=== PATIENT | male | born 1970 | race Caucasian/White ===

== ENCOUNTER → 2017-01-24 | Outpatient (CLI) | payer MEDICARE, BC ==
[~2017-01-24] MED LIST: ACTONEL35 MG PO; ALENDRONATE SOD70 MG PO; CIPRO250 MG PO; DELTASONE5 MG PO; FEOSOL325 MG PO; FLAGYL500 MG PO; IMODIUM2 MG PO; LEVAQUIN 250 M250 MG PO; NEORAL100 MG PO; OPIUM TINC10 MG/1 ML PO; OSCAL + D500 MG PO; SODIUM BICARBO650 MG PO; TYLENOL EXTRA500 MG PO; ZOFRAN4 M1 PO
[2017-01-24 07:30] LABS: HEMATOCRIT 42.8 % (37.0-53.0); HEMOGLOBIN 13.3 g/dL (12.0-17.0); MCH 24.1 pg (27.0-34.0); MCHC 31.1 gm/dL (32.0-36.5); MCV 77.7 fl (83.0-98.0); MPV 8.9 fl (9.4-12.4); RBC 5.51 M/uL (4.00-6.00); RDW-CV 16.4 % (11.9-14.6); WBC 9.2 K/uL (4.0-11.0)
[2017-01-24 08:01] LABS: ALBUMIN 2.9 gm/dL (3.5-5.0); ALK PHOS 116 IU/L (33-138); ANION GAP 14.3 (10.0-19.0); AST 17 IU/L (10-40); CALCIUM 8.3 mg/dL (8.5-10.5); CHLORIDE 109 mMol/L (96-110); CO2 23 mMol/L (22-32); CREATININE 1.1 mg/dL (0.6-1.3); ESTIMATED GFR (MDRD EQUATION) > 60; POTASSIUM 4.3 mMol/L (3.7-5.1); SODIUM 142 mMol/L (135-145); TOTAL BILIRUBIN 0.9 mg/dL (0.0-1.5); TOTAL PROTEIN 7.5 g/dL (6.0-8.4)
[2017-01-24 08:07] LABS: ALT 21 IU/L (12-78); BLOOD UREA NITROGEN 11 mg/dL (6-24)
== END | disposition disaster alternative care site (69) ==
LOC: GLAB 07:05
PROVIDERS: Internal Medicine Gastroenterology
DX: Z48.23 Encounter for aftercare following liver transplant (principal); Z94.4 Liver transplant status; Z79.899 Other long term (current) drug therapy

== ENCOUNTER → 2017-04-12 | Outpatient (CLI) | payer MEDICARE, BC ==
[2017-04-12 07:28] LABS: HEMATOCRIT 40.5 % (37.0-53.0); HEMOGLOBIN 12.8 g/dL (12.0-17.0); MCH 26.1 pg (27.0-34.0); MCHC 31.6 gm/dL (32.0-36.5); MPV 9.5 fl (9.4-12.4); RBC 4.91 M/uL (4.00-6.00); RDW-CV 17.2 % (11.9-14.6); WBC 6.6 K/uL (4.0-11.0)
[2017-04-12 07:29] LABS: MCV 82.5 fl (83.0-98.0)
[2017-04-12 07:31] LABS: ALBUMIN 2.8 gm/dL (3.5-5.0); ALK PHOS 67 IU/L (33-138); ALT 15 IU/L (12-78); ANION GAP 11.4 (10.0-19.0); AST 15 IU/L (10-40); BLOOD UREA NITROGEN 15 mg/dL (6-24); CALCIUM 7.9 mg/dL (8.5-10.5); CHLORIDE 111 mMol/L (96-110); CO2 25 mMol/L (22-32); CREATININE 1.1 mg/dL (0.6-1.3); ESTIMATED GFR (MDRD EQUATION) > 60; POTASSIUM 4.4 mMol/L (3.7-5.1); SODIUM 143 mMol/L (135-145); TOTAL BILIRUBIN 0.9 mg/dL (0.0-1.5); TOTAL PROTEIN 6.8 g/dL (6.0-8.4)
== END | disposition disaster alternative care site (69) ==
LOC: GLAB 07:00
PROVIDERS: Internal Medicine Gastroenterology
DX: Z48.23 Encounter for aftercare following liver transplant (principal); Z94.4 Liver transplant status; Z79.899 Other long term (current) drug therapy

== ENCOUNTER 2017-06-09 15:00 | Inpatient (IN) | payer MEDICARE, BC ==
[~2017-06-09] VITALS: Ht 170.2 cm; Wt 87.2 kg
--- NOTE | ~2017-06-09 | CON ---
PATIENT'S NAME: EMILIANA BREWER [facility] AGE: 47 Y [address] ROOM: [address] [place], [place] [address] LOCATION: GPCU ADMIT DATE: 06/09/2017 Consultation DISCHARGE DATE: FAMILY PHYSICIAN: CONSTANZA CARLSON MD ATTENDING PHYSICIAN: Mike Grissom DATE OF CONSULTATION: 06/09/2017 REFERRING PHYSICIAN: MITZY CHEATHAM REFERRING PHYSICIAN: Mike Grissom MD. REASON FOR CONSULTATION: HAKAN on CKD stage 3. HISTORY OF PRESENT ILLNESS: A 47-year-old male with history of ulcerative colitis, status post colectomy, ileoanal pull through in the past, liver transplant, currently on prednisone and cyclosporine admitted with significant diarrhea and poor oral intake associated with HAKAN and hypotension. Creatinine which is at baseline of 1.1 to 1.4 was 6.3 with very low urine output. Nephrology consultation has been called for above-mentioned reason. The patient states that he is feeling dizzy from this a.m., blood pressure was 80-90 in the systolic, came to see Dr. Carlson in the clinic and got a liter of normal saline bolus over there and subsequently was admitted in the hospital. Blood pressure is still pretty marginal, urine output was also very low and does not have a Chua at this point. Denied any chest pain or shortness of breath. The patient says that his mucous membrane is pretty dry and did mention about significant thirst. He admitted that he was not drinking well enough and was working outside in the hot summer. He is currently on cyclosporine as well for his liver transplant as mentioned above. Regarding the diarrhea, he has significant pain in the abdomen and cramping associated with multiple loose stools over the last 24-48 hours and he was lightheaded while standing. Denied any urinary symptoms other than decrease in the urinary volume. Denied any dysuria, urgency, or frequency. No nausea or vomiting. PAST MEDICAL HISTORY: Ulcerative colitis, status post liver transplant, low cognitive state. PAST SURGICAL HISTORY: Status post colectomy with ileoanal pull-through, status post liver transplant. SOCIAL HISTORY: Denied any smoking or illicit drug use. No alcohol abuse. Does have a full- time job and appears to involve in most of his decision making. FAMILY HISTORY: Reviewed and noncontributory about any kidney disease or dialysis. ALLERGIES: NO KNOWN DRUG ALLERGIES. CURRENT HOME MEDICATIONS: As per the chart.PATIENT'S NAME: EMILIANA BREWER [facility] AGE: 47 Y [address] ROOM: [id number] [place], [place] [address] LOCATION: GPCU ADMIT DATE: 06/09/2017 Consultation DISCHARGE DATE: FAMILY PHYSICIAN: CONSTANZA CARLSON MD ATTENDING PHYSICIAN: Mike Grissom REVIEW OF SYSTEMS: GENERAL: No fever. No chills or rigor. HEENT: No sore throat. No sinus congestion. CVS: No chest pain. No exertional shortness of breath. No leg swelling. RESPIRATORY: No shortness of breath. No cough. No wheezing. GENITOURINARY: Decrease in the urine output as mentioned in the HPI. No dysuria, urgency, or hesitancy. No hematuria. GASTROINTESTINAL: Complained of abdominal pain and diarrhea. No nausea or vomiting. NEUROLOGIC: No weakness. No seizures. SKIN: No rash. No itching. ALLERGIES: No seasonal allergy. No hayfever. ENDOCRINE: No heat intolerance. No cold intolerance. PSYCHIATRIC: No sadness. No crying spells. No history of panic attack. PHYSICAL EXAMINATION: VITAL SIGNS: Blood pressure 80s/40s, pulse 100, respiratory rate 18, afebrile, saturating 92-95% on room air. GENERAL: Not in apparent distress. HEAD: Dry mucous membranes. NECK: Flat JVP. CVS: S1 and S2 normal, regular rate and rhythm. No murmur, rub, gallop. CHEST: Bilateral air entry equal. No wheeze or rales. ABDOMEN: Soft, nontender, nondistended. Bowel sounds present. EXTREMITIES: No cyanosis, clubbing, jaundice. No dependent edema. MUSCULOSKELETAL: No limitation of range of motion. SKIN: No pallor, cyanosis, icterus. LEASING ASSISTANT: Alert and oriented x3. No gross findings. LABORATORY EVALUATION: Lactate 1.1. CBC: WBC 11.6, hemoglobin 12.5, platelet 264. Chemistry: Serum sodium 129, potassium 4.2, chloride 95, bicarbonate 22, BUN 63, creatinine 5.5, glucose 102, calcium 8.5, albumin 2.7, phosphorus 4.2, anion gap 16.2. UA pending. Urine lytes pending. ASSESSMENT AND PLAN: 1. Acute kidney injury on chronic kidney disease 3. Baseline creatinine of 1.1 to 1.4, now 6.3, decreased to 5.5 after 1 L of fluid hydration, possibly prerenal versus acute tubular necrosis. 2. Hypovolemic hyponatremia with serum sodium of 128, baseline is within normal range. 3. Status post liver transplant. On prednisone 5 and cyclosporine 100 b.i.d. 4. Diarrhea. Appears to be chronic but with recent worsening. The patient has been started on Flagyl.PATIENT'S NAME: EMILIANA BREWER [facility] AGE: 47 Y [address] ROOM: [place] [address] LOCATION: GPCU ADMIT DATE: 06/09/2017 Consultation DISCHARGE DATE: FAMILY PHYSICIAN: CONSTANZA CARLSON MD ATTENDING PHYSICIAN: Mike Grissom PLAN: Oliguric acute kidney injury, possibly secondary to fluid depletion with prerenal versus hypovolemic/hemodynamic ATN. We will start aggressive IV hydration with 2 L of normal saline bolus and then 150 mL/h. We will place and maintain a Chua and with strict intake and output monitoring and daily standing weight. We will do CBC and renal panel now and daily a.m. Avoid any nephrotoxins including NSAIDs and contrast media. Avoid hemodynamic instability and maintain MAP more than 65. We will also do a cyclosporine level today especially in context of dehydration and volume depletion and hold cyclosporine from now. Regarding hypovolemic hyponatremia, we will continue IV hydration as mentioned above and we will closely monitor the serum sodium. Please check urine sodium and potassium urine osmolality along with serum osmolality. Regarding orthotopic liver transplant and post liver transplant immunosuppression. We will hold cyclosporine in context of HAKAN. Continue prednisone for now. We may restart cyclosporine once renal function and volume status is better and once hemodynamic parameters are restored. Regarding diarrhea. The patient is started on antibiotic with Cipro and Flagyl by his primary team and will continue for that. Please order stool workup and we will defer further management as per the primary team. Thank you for allowing me to participate in this patient's care. We will closely monitor the patient's progress along with you. ABHISEKH GABBI CHEATHAM MD /modl /[id number] d: 06/10/17 1522 t: 06/25/1721, CONSULTATION REPORT
--- NOTE | ~2017-06-09 | DS ---
PATIENT'S NAME: EMILIANA BREWER [facility] AGE: 47 Y [address] ROOM: [address] [place], [place] [address] LOCATION: GPCU ADMIT DATE: 06/09/2017 Discharge Summary DISCHARGE DATE: 06/12/2017 FAMILY PHYSICIAN: Zo Alva MD ATTENDING PHYSICIAN: Mike Grissom REASON FOR ADMISSION: Acute renal failure as primary diagnosis secondary to acute diarrheal illness with hypovolemia. SECONDARY DIAGNOSES: 1. Chronic kidney disease, stage 3. 2. Hypokalemia. 3. Non-anion gap metabolic acidosis. 4. Ulcerative colitis, status post colectomy remotely. 5. History of orthotopic liver transplant. 6. Recent history of pouchitis. 7. Developmental delay. 8. Iron deficiency anemia. 9. [id number] protein-calorie malnutrition. CONSULTATIONS: Dr. Parrish with Nephrology. PRESENTING COMPLAINTS: This is a 47-year-old male with a history noted above, who was noted to have worsening renal function upon presentation to the clinic for dehydration and diarrhea. HOSPITAL COURSE: Creatinine was noted on outside lab work to be elevated to 6.6. His usual baseline 1.3 to 1.4. The patient does have history of similar presentations with dehydration, likely secondary to his history of colectomy for ulcerative colitis and poor ability to reabsorb. The patient is a poor historian, and notes that he had actually been feeling well prior to arrival, unable to gain further insight into recent situation, although he does deny fever, chills, sweats, cough, urinary symptoms, chest pain, shortness of breath, abdominal pain, or any other concerns. He is unable to quantify the number of stools that he had been having over recent days, but this was noted to be 6 to 8 stools daily as stated by staff early in admission. Workup was negative for positive infectious agent including negative C.diff and stool cultures. Renal function did improve with IV fluid hydration with saline. Renal ultrasound was negative for obstructive pathology. Cyclosporine was held first 2 days of admission due to known vasoconstrictive properties. This was resumed without incident the day prior to discharge. On date of discharge, creatinine had improved to 1.3. The only other complicating factor during his stay was mild non-anion gap metabolic acidosis noted and felt to be related to dilution with volume resuscitation. The patient did receive 3 amps of sodium bicarb on day prior to discharge per Nephrology and bicarb on BMP PATIENT'S NAME: EMILIANA BREWER [facility] AGE: 47 Y [address] ROOM: [id number] [place], [place] [address] LOCATION: GPCU ADMIT DATE: 06/09/2017 Discharge Summary DISCHARGE DATE: 06/12/2017 FAMILY PHYSICIAN: Zo Alva MD ATTENDING PHYSICIAN: Mike Grissom improved from 20 to 31. Hepatic function panel drawn during stay in the setting of held cyclosporine was unremarkable. The patient will be discharged home where he lives with his parents. PHYSICAL EXAMINATION: VITAL SIGNS: On date of discharge, temp 98.0, pulse 68, respiratory rate 18, blood pressure 105/60, and saturating 92% on room air GENERAL: In no acute distress, lying comfortably in bed, mild developmental delay and slow to respond to questions noted. CARDIOVASCULAR: Regular rate and rhythm. No murmurs, rubs, or gallops appreciated. 2+ pulses bilateral upper and lower extremities. LUNGS: Clear to auscultation bilaterally. Normal effort on room air. ABDOMEN: Soft, nontender, nondistended. Bowel sounds normoactive. EXTREMITIES: Without edema. DISCHARGE MEDICATIONS: Per MAR: 1. Cyclosporine held briefly during stay but resumed on discharge. 2. No other pertinent changes made during stay. DISCHARGE INSTRUCTIONS: Encouraged adequate fluid intake in the setting of possible infectious, though likely malabsorptive diarrhea given history of colectomy. FOLLOWUP: The patient to be seen with PCP within the next week with renal function panel at that time at Dr. Alva's office. TIME: I spent 25 minutes on date of discharge including visit with the patient and discharge coordination. MD KENNEDY LANE/jean-paul /[id number] d: 06/13/17 0413 t: 06/13/17 0824, DISCHARGE SUMMARY
--- NOTE | ~2017-06-09 | HP ---
PATIENT'S NAME: EMILIANA BREWER [facility] AGE: 47 Y [address] ROOM: [place] [address] LOCATION: GPCU ADMIT DATE: 06/09/2017 History & Physical DISCHARGE DATE: FAMILY PHYSICIAN: CONSTANZA CARLSON MD ATTENDING PHYSICIAN: Mike Grissom DATE OF SERVICE: CHIEF COMPLAINT: Acute kidney injury in the setting of chronic kidney disease. HISTORY OF PRESENTING ILLNESS: This 47-year-old white male with history of ulcerative colitis status post colectomy with pouch construction and subsequent liver transplant, was transferred to [facility] from the clinic with worsening kidney injury. He has a frequent history of exacerbations of dehydration. He does intermittently present to the clinic requiring some IV fluids. Today, he presented and his creatinine was significantly elevated above his baseline at 6.6. He usually runs 1.3-1.4. Although he did receive some IV fluids in the clinic today. It was felt that his condition would require hospitalization for extended IV fluid hydration and definitive evaluation and management. The patient is a poor historian. He reflects that he is actually been feeling "well." He did eat chicken nuggets earlier today but admits that he has not been drinking well. He denies headaches. Denies dizziness. Denies fever, chills, or sweats. He has not had any significant chest pain or shortness of breath. He denies vilma abdominal pain. He does not believe that he stooled today and cannot remember the last time that he did. He has been voiding in small amounts and voided a little bit after his arrival to the floor here. He has been consistent with his home medication regimen. His mother acts as a caregiver apparently. PAST MEDICAL HISTORY: ALLERGIES: NO KNOWN DRUG ALLERGIES. ILLNESSES: 1. Ulcerative colitis status post colectomy with ileoanal pouch construction. 2. Liver transplant, on immunosuppressant therapy with cyclosporine. 3. Developmental delay. PATIENT'S NAME: EMILIANA BREWER [facility] AGE: 47 Y [address] ROOM: [place] [address] LOCATION: GPCU ADMIT DATE: 06/09/2017 History & Physical DISCHARGE DATE: FAMILY PHYSICIAN: CONSTANZA CARLSON MD ATTENDING PHYSICIAN: Mike Grissom 4. History of recurrent pouchitis. CURRENT MEDICATIONS: 1. Acetaminophen 500 mg p.o. q.4 hours p.r.n. headache. 2. Fosamax 70 mg p.o. q.week. 3. Calcium with vitamin D 500 mg p.o. b.i.d. 4. Cipro 250 mg p.o. daily. 5. Cyclosporine 100 mg p.o. b.i.d. 6. Iron 325 mg p.o. t.i.d. 7. Imodium 2 mg p.o. q.i.d. 8. Prednisone 5 mg p.o. daily. FAMILY HISTORY: Negative for heart disease or stroke. SOCIAL HISTORY: He lives here in [place]. 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 There is no significant history of tobacco use or alcohol use. His mother, Desiree, provides social support. REVIEW OF SYSTEMS: As per HPI. All other organ systems reviewed and are negative. OBJECTIVE: VITAL SIGNS: Temperature. 98.1, pulse 79, respirations 15, blood pressure 96/55. Weight is 77.1 kg. GENERAL: He is anxious, cooperative, lying in the bed, in no acute distress. He answers questions appropriately but demonstrates limited comprehension. SKIN: Supple, pink, warm, and dry. There are no obvious rashes. HEENT: Otherwise normocephalic. Sclerae nonicteric. Pupils equal, round, and reactive to light and accommodation. Extraocular movements appear intact. Nasal turbinates normal in appearance. Oropharynx clear. Mucous membranes are pink and moist. Dentition is in poor repair. NECK: Supple. Plethoric. No masses or adenopathy. No thyromegaly. No JVD. CHEST: Wall is symmetrical. HEART: Regular without murmurs. LUNGS: Clear bilaterally. No wheezes or crackles are heard. ABDOMEN: Soft and protuberant. Nontender. Bowel sounds present. No masses. No obvious hepatosplenomegaly. and RECTAL: Not performed. EXTREMITIES: Display no significant clubbing, cyanosis, or edema. NEUROLOGIC: Mentation is slowed. There are no focal deficits. LABORATORY AND X-RAY DATA: CBC showed white blood cell count elevated at 14.6, hemoglobin is 13.5, PATIENT'S NAME: EMILIANA BREWER [facility] AGE: 47 Y [address] ROOM: [id number] [place], [place] [address] [facility] AD[facility] DATE: 06/09/2017 History & Physical DISCHARGE DATE: FAMILY PHYSICIAN: CONSTANZA CARLSON MD ATTENDING PHYSICIAN: Mike Grissom hematocrit 39.6, platelets 283. Chemistries reveal a BUN and creatinine of 63 and 6.06. Sodium and potassium 128 and 4.7, chloride and CO2 of 93 and 25.4 respectively. Albumin is slightly low at 3.0. Magnesium level is 1.8. A lactate in the clinic was normal at 1.2. ASSESSMENT AND PLAN: 1. Acute kidney injury. We will admit to inpatient care. We will initiate continued IV fluid hydration therapy with normal saline and monitor for response. We will get renal ultrasound and follow up on that when the results are known. We will hold the cyclosporine as suggested by Dr. Carlson due to its vasoconstrictive properties. We will also request consultation by Nephrology, Dr. Vasquez and await his evaluation recommendations. 2. Pouchitis. He has been on low-dose ciprofloxacin therapy. We will review the literature for alternative strategies. Consider a probiotic. We will repeat lactate to assess for the possibility of developing sepsis. 3. Ulcerative colitis. Historically controlled and stable on steroid therapy with prednisone. Plan to continue with prednisone and monitor. 4. Status post liver transplant. Historically stable, on cyclosporine. We will hold the cyclosporine as above at least temporarily and monitor. 5. Moderate protein-calorie malnutrition. Encourage balanced dietary intake. 6. Hyponatremia, mild. We will initiate IV normal saline as above. He appears to be intravascularly volume deplete. 7. Developmental delay. We will encourage ongoing education and support to the patient and his mother to develop a safe discharge plan. 8. Deep venous thrombosis prophylaxis. We will follow the VTE protocol. MD COLETTE SALAS/emperatrizl /[id number] D: [id number] T: [id number] HISTORY & PHYSICAL
--- NOTE | 2017-06-09 16:15 | NUR ---
Pt is 47 y/o male admit for acute on chronic kidney disease for hospitalist. Pt alert and oriented x3. Resides at home with his parents. No allergies. Yellow bracelet on. Hx cirrhosis,liver transplant,learning disability, ulcerative colitis-had colostomy and take down,low urine output today. PT states he didn't feel well while at work and was slightly nauseated.
[2017-06-09 16:32] LABS: BLOOD URINE 10 /UL (NEGATIVE); GLUCOSE URINE NEGATIVE (NEGATIVE); KETONE URINE 5 mg/dL (NEGATIVE); LEUKOCYTES URINE 25 /UL (NEGATIVE); NITRITE URINE NEGATIVE (NEGATIVE); PROTEIN URINE 30 mg/dL (NEGATIVE); TURBIDITY URINE CLEAR (CLEAR); UROBILINOGEN URINE 1 mg/dL (NORMAL)
[2017-06-09 16:35] LABS: COLOR URINE AMBER (YELLOW)
[2017-06-09 17:16] LABS: AMORPHOUS URINE 3+ (NEGATIVE); BACTERIA URINE RARE (NEGATIVE); HYALINE CAST URINE 50-100 #/LPF (NEGATIVE); RBC URINE 0-2 #/HPF (NEGATIVE)
[2017-06-09 18:01] LABS: BASOPHIL % 0.3 %; EOSINOPHIL % 0.3 %; HEMATOCRIT 36.4 % (37.0-53.0); HEMOGLOBIN 12.5 g/dL (12.0-17.0); IMMATURE GRANULOCYTE # 0.1 K/uL (0.0-0.3); IMMATURE GRANULOCYTE % 0.4 %; LYMPHOCYTE # 1.7 K/uL (0.8-4.0); LYMPHOCYTE % 14.2 %; MCH 27.1 pg (27.0-34.0); MCHC 34.3 gm/dL (32.0-36.5); MONOCYTE # 0.7 K/uL (0.0-1.0); MONOCYTE % 6.2 %; NEUTROPHIL # (ANC) 9.2 K/uL (1.4-9.0); NEUTROPHIL % 78.6 %; NRBC % 0 /100WBC (0-0.00); PLATELET COUNT 264 K/uL (150-450); RBC 4.61 M/uL (4.00-6.00); RDW-CV 13.8 % (11.9-14.6); WBC 11.6 K/uL (4.0-11.0)
[2017-06-09 18:09] LABS: ALBUMIN 2.7 gm/dL (3.5-5.0); ANION GAP 16.2 (10.0-19.0); CALCIUM 8.5 mg/dL (8.5-10.5); PHOSPHORUS 4.2 mg/dL (2.5-4.9); POTASSIUM 4.2 mMol/L (3.7-5.1)
[2017-06-09 18:11] LABS: CREATININE 5.5 mg/dL (0.6-1.3)
--- NOTE | 2017-06-09 18:47 | NUR ---
Significant Event:Patient admitted for weakness and diarrhea x 3 days. Mother brought to clinic today to be seen and BPs were 80/50s. IV fluid bolus given and transferred here. History of liver transplant and currently on immunosuppression. BPs 90/60s on arrival. 2L fluid bolus started. Dr. Parrish consulted for HAKAN. Denies dizziness at this time. BC done to rule out sepsis. Follow up: continue plan of care.
[2017-06-10 03:25] LABS: BASOPHIL % 0.3 %; EOSINOPHIL # 0.1 K/uL (0.0-0.5); EOSINOPHIL % 0.9 %; HEMATOCRIT 33.1 % (37.0-53.0); HEMOGLOBIN 11.2 g/dL (12.0-17.0); IMMATURE GRANULOCYTE # 0.1 K/uL (0.0-0.3); IMMATURE GRANULOCYTE % 0.5 %; LYMPHOCYTE # 1.9 K/uL (0.8-4.0); LYMPHOCYTE % 19.8 %; MCH 27.3 pg (27.0-34.0); MCHC 33.8 gm/dL (32.0-36.5); MCV 80.5 fl (83.0-98.0); MONOCYTE % 9.8 %; MPV 9.1 fl (9.4-12.4); NEUTROPHIL # (ANC) 6.6 K/uL (1.4-9.0); NEUTROPHIL % 68.7 %; NRBC % 0 /100WBC (0-0.00); PLATELET COUNT 230 K/uL (150-450); RBC 4.11 M/uL (4.00-6.00); RDW-CV 13.8 % (11.9-14.6); WBC 9.7 K/uL (4.0-11.0)
[2017-06-10 03:39] LABS: ALBUMIN 2.4 gm/dL (3.5-5.0); ANION GAP 12.9 (10.0-19.0); CALCIUM 7.8 mg/dL (8.5-10.5); CREATININE 3.4 mg/dL (0.6-1.3); MAGNESIUM 1.9 mg/dL (1.8-2.6); PHOSPHORUS 3.2 mg/dL (2.5-4.9); POTASSIUM 3.9 mMol/L (3.7-5.1)
--- NOTE | 2017-06-10 05:08 | NUR ---
Patient is A/O. Lung sounds are clear on RA. Bowel sounds are present. 4 small loose stools of diarrhea. Chua catheter with 500 output. SBA. IV in left anterior wrist with 150 NS running. c/o low back pain treated with 650mg Tylenol at 0330. VSS. Regular diet.
[2017-06-10 12:37] LABS: BILIRUBIN URINE NEGATIVE (NEGATIVE); BLOOD URINE 25 /UL (NEGATIVE); COLOR URINE YELLOW (YELLOW); GLUCOSE URINE NEGATIVE (NEGATIVE); KETONE URINE NEGATIVE (NEGATIVE); LEUKOCYTES URINE 100 /UL (NEGATIVE); NITRITE URINE NEGATIVE (NEGATIVE); PH URINE 6.5 (4.0-8.0); PROTEIN URINE 15 mg/dL (NEGATIVE); TURBIDITY URINE CLEAR (CLEAR); UROBILINOGEN URINE NORMAL (NORMAL)
[2017-06-10 12:47] LABS: BACTERIA URINE RARE (NEGATIVE); EPITHELIAL URINE RARE #/HPF (NEGATIVE); RBC URINE 0-2 #/HPF (NEGATIVE); WBC URINE 0-2 #/HPF (NEGATIVE)
--- NOTE | 2017-06-10 13:36 | NUR ---
Met with patient at bedside today. Introduced myself, SW media intern Rosa, and explained our role with the CM department. Patient lives at home with his parents. He is developmentally delayed and unable to live on his own. He has a job at [employer]. His plan is to return home to his parents and return to work once he is medically cleared. No anticipated discharge needs for him. Will continue to follow and offer supports.
--- NOTE | 2017-06-10 18:11 | NUR ---
Significant Event: ALERT & ORIENTED, DEVELOPMENTAL DELAY. SBP 90-100, HR 50-60'S, AFEBRILE, ROOM AIR. SBA. 10 LOOSE SEEDY STOOLS, SPECIMEN TO LAB. ST 1250 OUT. GAVE 2L BOLUS, NS AT 250 ML/HR NOW. Follow up: DC TO HOME TOMORROW/TUESDAY IF CREATININE IMPROVES
[2017-06-11 03:42] LABS: BASOPHIL % 0.6 %; EOSINOPHIL # 0.1 K/uL (0.0-0.5); EOSINOPHIL % 2.5 %; HEMATOCRIT 31.5 % (37.0-53.0); HEMOGLOBIN 10.4 g/dL (12.0-17.0); IMMATURE GRANULOCYTE % 0.8 %; LYMPHOCYTE # 1.1 K/uL (0.8-4.0); LYMPHOCYTE % 20.7 %; MCH 27.2 pg (27.0-34.0); MCV 82.5 fl (83.0-98.0); MONOCYTE # 0.5 K/uL (0.0-1.0); MONOCYTE % 10.3 %; NEUTROPHIL # (ANC) 3.4 K/uL (1.4-9.0); NEUTROPHIL % 65.1 %; NRBC % 0 /100WBC (0-0.00); PLATELET COUNT 211 K/uL (150-450); RBC 3.82 M/uL (4.00-6.00); RDW-CV 14.3 % (11.9-14.6); WBC 5.2 K/uL (4.0-11.0)
[2017-06-11 03:55] LABS: CALCIUM 7.6 mg/dL (8.5-10.5); PHOSPHORUS 2.1 mg/dL (2.5-4.9); POTASSIUM 3.8 mMol/L (3.7-5.1)
[2017-06-11 03:56] LABS: ANION GAP 11.8 (10.0-19.0); CREATININE 1.3 mg/dL (0.6-1.3)
[2017-06-11 04:05] LABS: TOTAL PROTEIN 5.5 g/dL (6.0-8.4)
[2017-06-11 04:07] LABS: TOTAL BILIRUBIN 0.5 mg/dL (0.0-1.5)
--- NOTE | 2017-06-11 05:06 | NUR ---
Significant Event: Patient alert and oriented x3. SBP 120s-140s. HR 90s-100s. Temp. 98.9-99.0. On RA. Percocet x1 given for pain to boil on left neck. Dressing changed x1 per patient request. Surrounding skin on left neck hard, red. Up in room with stand-by assist. HS accucheck 343. Insulin given per sliding scale. 1600ml uop. Bilateral arm PIVs saline locked. Patient calm and cooperative with all cares. Follow up: Will continue to monitor per plan of care.
--- NOTE | 2017-06-11 05:18 | NUR ---
Significant Event: Patient alert and oriented x3. Developmentally delayed. SBP 90s-110s. All other vital signs stable. On RA. Up with stand-by assist in room. Bowel movement x7 this shift. Order for C-Diff sample. Results pending. Chua catheter patent with 1000ml uop. Left wrist PIV with NS running at 250ml/hr. Complained of back pain on and off throughout shift. Repositioning and walking brought relief to patient. Aloe Buhl applied to hemmorrhoids/ bottom frequently. Patient calm and cooperative with all cares. Follow up: Will continue to monitor per plan of care.
--- NOTE | 2017-06-11 16:18 | NUR ---
Significant Event: A/O X 3. SPEECH IS HARD TO UNDERSTAND AT TIMES, PT. MUMBLES WHICH IS NORMAL FOR HIM. IV SODIUM BICARB TODAY. GFR 65 CRET 1.3. HAS HAD 3 SMALL LOOSE STOOLS. AFEBRILE. HR 50-93 TODAY. O2 SATS 96% ON ROOM AIR. NO RESP. DISTRESS. ST WITH GOOD URINE OUTPUT. PT. HAS MASSIVE HEMMORHOIDS, WITH SOME BLEEDING AT TIMES. PT. VOICED HIS PCP IS AWARE. SBP 88-98 TODAY. Follow up: PREPARE DISM. PAPERS FOR POSSIBLE DISM. TOMORROW.
[2017-06-12 03:07] LABS: BASOPHIL % 0.7 %; EOSINOPHIL # 0.3 K/uL (0.0-0.5); EOSINOPHIL % 5.2 %; HEMATOCRIT 29.6 % (37.0-53.0); IMMATURE GRANULOCYTE % 0.5 %; LYMPHOCYTE % 34.7 %; MCH 27.5 pg (27.0-34.0); MCHC 33.8 gm/dL (32.0-36.5); MCV 81.5 fl (83.0-98.0); MONOCYTE # 0.7 K/uL (0.0-1.0); MONOCYTE % 11.4 %; NEUTROPHIL # (ANC) 2.8 K/uL (1.4-9.0); NEUTROPHIL % 47.5 %; NRBC % 0 /100WBC (0-0.00); PLATELET COUNT 208 K/uL (150-450); RBC 3.63 M/uL (4.00-6.00); WBC 5.8 K/uL (4.0-11.0)
[2017-06-12 03:20] LABS: ANION GAP 8.3 (10.0-19.0); CREATININE 1.3 mg/dL (0.6-1.3); POTASSIUM 3.3 mMol/L (3.7-5.1)
[2017-06-12 03:22] LABS: ALBUMIN 1.9 gm/dL (3.5-5.0); CALCIUM 7.3 mg/dL (8.5-10.5); PHOSPHORUS 1.9 mg/dL (2.5-4.9)
--- NOTE | 2017-06-12 04:59 | NUR ---
Significant Event: Pt A&Ox4. VS stable, remains on RA. Has been hypotensive throughout the night. Has had multiple stools throughout the night, gave 1 dose of imodium with somewhat relief. Pulled do around 0030. Has had 1 Lg void since pulling. Potassium this AM was 3.3. No c/o pain. Have been using perifoam and aloe vesta to bottom. Follow up: Treat potassium? To d/c today home.
--- NOTE | 2017-06-12 15:03 | NUR ---
DISM. NOTE: 1450: REVIEW OF HOME MEDS, NO NEW MEDS. DIET/ ACTIVITY INSTRUCTED ON FLUID INTAKE. FOLLOW UP APPT. MOTHER AND PATIENT VOICED UNDERSTANDING.
== END 2017-06-12 15:00 | disposition disaster alternative care site (69) | DRG 683 ==
LOC: GPCU 15:12
PROVIDERS: Internal Medicine Nephrology; ADMIT Family Medicine
DX: N17.8 Other acute kidney failure (principal); E87.1 Hypo-osmolality and hyponatremia; E87.2 Acidosis; I95.9 Hypotension, unspecified; E44.0 Moderate protein-calorie malnutrition; Z94.4 Liver transplant status; K51.90 Ulcerative colitis, unspecified, without complications; K91.850 Pouchitis; N18.3 Chronic kidney disease, stage 3 (moderate); D50.9 Iron deficiency anemia, unspecified; R62.50 Unspecified lack of expected normal physiological development in childhood; Z90.49 Acquired absence of other specified parts of digestive tract; E87.6 Hypokalemia; Z79.52 Long term (current) use of systemic steroids
CPT/HCPCS: J2405; J7030; J7060; J7502; J7512

== ENCOUNTER → 2017-07-11 | Outpatient (CLI) | payer MEDICARE, BC ==
[2017-07-11 07:22] LABS: HEMOGLOBIN 13.1 g/dL (12.0-17.0); MCV 78.2 fl (83.0-98.0); MPV 9.4 fl (9.4-12.4); RDW-CV 13.8 % (11.9-14.6); WBC 9.1 K/uL (4.0-11.0)
[2017-07-11 07:29] LABS: HEMATOCRIT 37.6 % (37.0-53.0); MCH 27.2 pg (27.0-34.0); MCHC 34.8 gm/dL (32.0-36.5); RBC 4.81 M/uL (4.00-6.00)
[2017-07-11 07:44] LABS: ALBUMIN 2.9 gm/dL (3.5-5.0); ANION GAP 12.4 (10.0-19.0); CALCIUM 8.6 mg/dL (8.5-10.5); CREATININE 2.2 mg/dL (0.6-1.3); POTASSIUM 3.4 mMol/L (3.7-5.1); TOTAL BILIRUBIN 0.6 mg/dL (0.0-1.5); TOTAL PROTEIN 7.9 g/dL (6.0-8.4)
== END | disposition disaster alternative care site (69) ==
LOC: GLAB 06:52
PROVIDERS: Internal Medicine Gastroenterology
DX: Z48.23 Encounter for aftercare following liver transplant (principal); Z94.4 Liver transplant status; Z79.899 Other long term (current) drug therapy